=== PATIENT | female | born 1960 | race Caucasian/White ===

== ENCOUNTER 2019-12-05 18:13 | Inpatient (IN) | payer MEDICARE, MEDICAID ==
[~2019-12-05] VITALS: Ht 170.2 cm; Wt 83.5 kg
[2019-12-05] MEDS ORDERED: ALBUTEROL SULFATE 2.5 MG/0.5 ML INH NEB SOLN INH ONE (18:30)
[2019-12-05] MEDS ORDERED: IPRATROPIUM 0.5MG/ALBUTEROL 2.5MG INH SOL UD 3ML (DUONEB)(J7620) NEB ONE (18:30)
[2019-12-05] MEDS ORDERED: methylPREDNISolone INJ 125 MG/2 ML VIAL (J2930) IV ONE (18:30)
[2019-12-05 18:39] LABS: HEMATOCRIT 44.1 % (36.0-47.0); HEMOGLOBIN 12.1 g/dl (12.0-15.5); MEAN CORPUSCULAR HEMOGLOBIN 24.1 pg (27.0-33.0); MEAN CORPUSCULAR HGB CONC 27.4 g/dl (32.0-36.5); MEAN CORPUSCULAR VOLUME 87.7 fl (80.0-96.0); PLATELET COUNT, AUTOMATED 556 10^3/uL (150-450); RED BLOOD COUNT 5.03 10^6/uL (4.00-5.40)
[2019-12-05 18:40] LABS: WHITE BLOOD COUNT 24.3 10^3/uL (4.0-10.0)
[2019-12-05 18:52] LABS: INR 1.04; PROTHROMBIN TIME 13.3 SECONDS (11.8-14.0)
[2019-12-05 18:59] LABS: ANISOCYTOSIS 1+; ATYPICAL LYMPH 10 % (0-5); LYMPHOCYTES 17 % (16-44); MONOCYTES 5 % (0-5); NEUTROPHILS 68 % (28-66); PLATELET ESTIMATE INCREASED (NORMAL); POLYCHROMASIA 1+
[2019-12-05 19:00] LABS: HYPOCHROMASIA 1+
[2019-12-05 19:01] LABS: PLATELET CLUMPS SMALL AMT
[2019-12-05 19:02] LABS: ALBUMIN 3.8 GM/DL (3.2-5.2); ALT/SGPT 33 U/L (12-78); BILIRUBIN,DIRECT 0.1 MG/DL (0.0-0.2); BILIRUBIN,TOTAL 0.4 MG/DL (0.2-1.0); NT-PRO BNP 228 PG/ML (<125); THYROXINE (T4) 8.2 UG/DL (4.5-12.0); TOTAL PROTEIN 7.5 GM/DL (6.4-8.2)
[2019-12-05 19:20] LABS: CK-MB VALUE MASS 1.5 NG/ML (<3.6); CPK CREATINE PHOSPHOKINASE 55 U/L (26-192); MB/CK RELATIVE INDEX 2.73 (< OR =4); TROPONIN I < 0.02 NG/ML (< 0.10)
[2019-12-05] MEDS ORDERED: cefTRIAXone SOD 1 GM in D5W MINI-BAG PLUS 50 ML IV ONE (19:45)
[2019-12-05] MEDS ORDERED: PROC5TA PO (20:06)
[2019-12-05] MEDS ORDERED: ALPR0.5T3 PO (20:06)
[2019-12-05] MEDS ORDERED: SERT-138 PO (20:06)
[2019-12-05] MEDS ORDERED: LEVA12INH INH (20:06)
[2019-12-05] MEDS ORDERED: PRED10TA2 PO (20:06)
[2019-12-05] MEDS ORDERED: VENTAER INH (20:06)
[2019-12-05] MEDS ORDERED: BISO5TAB14 PO (20:06)
[2019-12-05] MEDS ORDERED: HYDR-3713 PO (20:06)
[2019-12-05] MEDS ORDERED: MOBI4TAB PO (20:06)
[2019-12-05] MEDS ORDERED: SPIR1CAP INH (20:06)
[2019-12-05] MEDS ORDERED: ATOR80TA59 PO (20:34)
[2019-12-05] MEDS ORDERED: JANU100T PO (20:34)
[2019-12-05] MEDS ORDERED: VITA50005 PO (20:34)
[2019-12-05] MEDS ORDERED: FLUO1TAB3 PO (20:34)
[2019-12-05] MEDS ORDERED: LEVO25TA5 PO (20:34)
[2019-12-05] MEDS ORDERED: POTA8CAP10 PO (20:34)
[2019-12-05] MEDS ORDERED: GABA800T4 PO (20:34)
[2019-12-05] MEDS ORDERED: PANT-23 PO (20:34)
[2019-12-05] MEDS ORDERED: IPRA0.00 IN (20:34)
[2019-12-05] MEDS ORDERED: FURO40TA2 PO (20:34)
[2019-12-05] MEDS: MELOXICAM (MOBIC) 7.5 MG TAB PO SCH (21:00)
[2019-12-05] MEDS ORDERED: LEVALBUTEROL 1.25 MG/0.5 ML CONCENTRATE NEB INH PRN (21:15)
[2019-12-05] MEDS ORDERED: GLUCOSE 4 GM CHEW TABLET PO PRN (22:00)
[2019-12-05] MEDS ORDERED: DEXTROSE 50% 50 ML SYRINGE IV PRN (22:00)
[2019-12-05] MEDS ORDERED: GLUCAGON FOR INJ 1 MG VIAL (J1610) SC PRN (22:00)
--- NOTE | 2019-12-05 22:30 | HPEPDOC ---
General Date of Admission Dec 05, 2019 at 21:13 Date of Service: Dec 05, 2019 Attending Physician: HERIBERTO FORTE MD Chief Complaint The patient is a 59-year-old female admitted with a reason for visit of Acute Respiratory Failure With Hypoxia And Hyperca. Source: Patient Exam Limitations: No limitations Timing/Duration: 24 hours Severity: Severe Associated Symptoms: Malaise, Shortness of breath History of Present Illness 59-year-old W with COPD on 2L O2 and chronic steroids, SATHISH and possible OHS? on BiPAP 16/6 PRN and QHS, NIDDM2, CAD (Hx of NE), HTN, hyperlipidemia, hypothyroidism, bipolar disorder, GERD, active smoker who quit 1 week ago, rece ntly admitted for COPD exacerbation who returns to the ED via EMS with complaints of worsening shortness of breath, without any complaints of tiff chest pain, palpitations, fever, chills or increased sputum production. In the ED intial vitals were BP 155/80, 91% on BiPAP 20/10 @ 30% by the time I saw her for increased somnolence that had improved, HR 102, RR29. Initial ABG showed 7.26/109/209 that improved to 7.35/86.6/68 with improvement of her somnolence and answered all questions appropriately on my evaluation. She was given duonebx1, albuterol x 1 and empiric ceftriaxone. Initial work up was notable for negative troponin, unremarkable BNP 228, normal TSH, CXR with chronic emphysematous changes without tiff opacities or effusions, WBC 24.3, Hgb 12.1, Hgb 44.1, platelets 556, na 137, K 4.3, Bicarb 45, Cr 0.7, normal LFTs. She is now being admitted to the ICU for acute on chronic hypercarbic hypoxemic respiratory failure likely 2/2 COPD exacerbation for BiPAP and IV steroids. Home Medications Scheduled Alprazolam (Alprazolam) 0.5 Mg Tablet, 0.5 MG PO BID, (Reported) Atorvastatin Calcium (Atorvastatin Calcium) 80 Mg Tablet, 80 MG PO DAILY, (Reported) Bisoprolol Fumarate (Bisoprolol Fumarate) 5 Mg Tablet, 2.5 MG PO DAILY, (Reported) Ergocalciferol (Vitamin D2) (Vitamin D2) 50,000 Units Cap, 50,000 UNITS PO 1XWK, (Reported) TAKES ON FRIDAY Fluoxetine HCl (Fluoxetine HCl) 20 Mg Tablet, 20 MG PO DAILY, (Reported) Furosemide (Furosemide) 40 Mg Tablet, 40 MG PO BID, (Reported) Gabapentin (Gabapentin) 800 Mg Tablet, 800 MG PO TID, (Reported) Levothyroxine Sodium (Levothyroxine Sodium) 25 Mcg Tablet, 25 MCG PO DAILY, (Reported) Meloxicam (Mobic) 7.5 Mg Tablet, 7.5 MG PO BID, (Reported) WITH FOOD Pantoprazole Sodium (Pantoprazole Sodium) 40 Mg Tablet.dr, 40 MG PO DAILY, (Reported) Potassium Chloride (Potassium Chloride) 8 Meq Capsule.er, 16 MEQ PO DAILY, (Reported) Prednisone (Prednisone) 10 Mg Tablet, 5 MG PO DAILY, (Reported) Prochlorperazine (Prochlorperazine Maleate) 5 Mg Tablet, 5 MG PO DAILY, (Reported) Sertraline HCl (Sertraline HCl) 100 Mg Tablet, 100 MG PO DAILY, (Reported) Sitagliptin Phosphate (Januvia) 100 Mg Tablet, 100 MG PO DAILY, (Reported) Tiotropium [place] (Spiriva) 18 Mcg Cap.w.dev, 1 INHALATION INH DAILY, (Reported) Scheduled PRN Albuterol Sulfate (Ventolin Hfa) 18 Gm Hfa.aer.ad, 2 PUFF INH Q4-6H PRN for wheezing, (Reported) Hydrocodone/Acetaminophen (Hydrocodone-Acetamin 5-325 mg) 1 Each Tablet, 1 TAB PO TID PRN for pain, (Reported) Ipratropium/Albuterol Sulfate (Iprat-Albut 0.5-3(2.5) mg/3 ml) 3 Ml Ampul.neb, 1 INHALATION IN QID PRN for SHORTNESS OF BREATH, (Reported) Levalbuterol Hydrochloride (Xopenex Concentrate) 1.25 Mg/0.5 Ml Vial.neb, 1.25 MG INH Q4H PRN for WHEEZING, (Reported) Allergies Coded Allergies: Cat Dander (Verified Allergy, Unknown, 12/05/19) Dust (Verified Allergy, Unknown, 12/05/19) Past Medical History Medical History COPD on home O2 and chronic steroids, SATHISH on PRN BiPAP as well as QHS, NIDDM2, CAD (Hx of NE), HTN, DLP, Hypothyroidism, Bipolar disorder, GERD Family History Significant Family History: No pertinent family hx Social History * Smoker: current smoker Alcohol: Denies Drugs: denies Recent Travel/Sick Contacts: Denies: Recent travel, Recent sick contacts Psychosocial History: Depression Lives alone, smoker trying to quit A-FIB/CHADSVASC A-FIB History Current/History of A-Fib/PAF?: No Current PO Anticoag Therapy: No Age/Risk Factor Scoring CHADSVASC: CHADSVASC Response (Comments) Value Age Risk Factor Age < 65 years old 0 Gender Risk Factor Female 1 Hx of CHF Yes 1 Hx of HTN Yes 1 Hx of Stroke/TIA/or VTE No 0 Hx of Diabetes Yes 1 Hx of Vascular Disease Yes 1 Total 5 Treatment Treatment ordered: NONE Reason Anticoagulant not given: Not indicated/[id number] Review of Systems Constitutional: Reports: Fatigue, Lethargy; Denies: Chills, Fever, Night Sweats Eyes: Denies: Pain, Vision change ENT: Denies: Head Aches, Ear Pain, Dysphagia Skin: Denies: Rash, Lesions, Breakdown Pulmonary: Reports: Dyspnea, Cough; Denies: Pleuritic Chest Pain Cardiovascular: Denies: Chest Pain, Palpitations, Orthopnea, Paroxysmal Noc. Dyspnea, Lt Headedness Gastrointestinal: Denies: Nausea, Vomiting, Abdominal Pain, Diarrhea Genitourinary: Denies: Dysuria, Frequency, Incontinence, Retention Hematologic: Denies: Bruising, Bleeding Excessively Endocrine: Denies: Polydipsia, Polyphagia, Polyuria, Heat Intolerance, Cold Intolerance, Other Endocrine Sx Musculoskeletal: Denies: Neck Pain, Back Pain, Joint Pain, Muscle Pain, Spasms Neurological: Denies: Weakness, Numbness, Change in speech, Confusion Psych: Reports: Mood Normal; Denies: Depression, Memory Issues Physical Examination General Exam: Positive: Alert, No Acute Distress Eye Exam: Positive: PERRLA, Conjunctiva & lids normal, EOMI; Negative: Sclera icteric ENT Exam: Positive: Atraumatic, Mucous membr. moist/pink, Pharynx Normal Neck Exam: Positive: Supple; Negative: JVD, thyromegaly Chest Exam: Positive: Clear to auscultation, Normal air movement, Rhonchi; Negative: Rales, Wheezing Heart Exam: Positive: Rate Normal, Regular Rhythm, Normal S1, Normal S2; Negative: Murmurs, Rubs Telemetry: Positive: No significant arrhythmia, Tachycardia Abdomen Exam: Positive: Normal bowel sounds, Soft; Negative: Tenderness, Hepatospenomegaly Extremity Exam: Positive: Normal pulses; Negative: Clubbing, Cyanosis, Edema Skin Exam: Positive: Nl turgor and temperature; Negative: Breakdown, Lesion Neuro Exam: Positive: Normal Gait, Normal Speech, Cranial Nerves 3-12 NL, Reflexes 2+ Psych Exam: Positive: Mental status NL, Mood NL, Oriented x 3 Vital Signs Vital Signs Date Time Temp Pulse Resp B/P (MAP) Pulse Ox O2 Delivery O2 Flow Rate FiO2 12/05/19 19:51 91 BIPAP/CPAP 30 12/05/19 18:37 99.2 102 47 155/80 (105) Laboratory Data Labs 24H Laboratory Tests 2 12/05/19 18:19: Lymphocytes # (Auto) , Nucleated Red Blood Cells % (auto) 0.0, Neutrophils 68H, Lymphocytes (Manual) 17, Monocytes (Manual) 5, Atypical Lymphocytes 10H, Polychromasia 1+, Hypochromasia 1+, Basophilic Stippling 1+, Anisocytosis 1+, Pl atelet Estimate INCREASED, Clumped Platelets SMALL AMT, Prothrombin Time 13.3, Prothromb Time International Ratio 1.04, Lactic Acid Level 1.0, Total Bilirubin 0.4, Direct Bilirubin 0.1, Aspartate Amino Transf (AST/SGOT) 13, Alanine Aminotransferase (ALT/SGPT) 33, Alkaline Phosphatase 126H, Total Creatine Kinase 55, Creatine Kinase MB 1.5, Creatine Kinase MB Relative Index 2.73, Troponin I < 0.02, LN-Mwp-U-Type Natriuretic Peptide 228H, Total Protein 7.5, Albumin 3.8, Albumin/Globulin Ratio 1.03, Thyroid Stimulating Hormone (TSH) 2.830, Thyroxine (T4) 8.2 12/05/19 18:21: Bedside Glucose (Misc Panel) 218H 12/05/19 18:25: POC Glucose (Misc Panel) 210H, POC Sodium (Misc Panel) 137, POC Potassium (Misc Panel) 4.3, POC Chloride (Misc Panel) 87L, POC Total CO2 (Misc Panel) 45.0H, POC Blood Urea Nitrogen (Misc Panel 21, POC Ionized Calcium (Misc Panel) 4.6, POC Creatinine (Misc Panel) 0.7, POC Hematocrit (Misc Panel) 44.0 12/05/19 18:32: POC Total CO2 (Misc Panel) > 50.0H, POC pH (Misc Panel) 7.267L, POC Base Excess (Misc Panel) 23.0H, POC Saturated Percent O2 (Misc) 100H, POC pO2 (Misc Panel) 249.0H, POC pCO2 (Misc Panel) 109.5*H, POC HCO3 (Misc Panel) 49.9H 12/05/19 19:52: POC pH (Misc Panel) 7.357, POC Base Excess (Misc Panel) 23.0H, POC Saturated Percent O2 (Misc) 91L, POC pO2 (Misc Panel) 68.0L, POC pCO2 (Misc Panel) 86.6*H, POC HCO3 (Misc Panel) 48.5H, POC Total CO2 (Misc Panel) > 50.0H CBC/BMP Laboratory Tests 12/05/19 18:19 Microbiology Microbiology 12/05/19 Blood Culture, Received Pending 12/05/19 Respiratory Virus Panel (PCR) (GERI) - Final, Complete 12/05/19 Blood Culture, Received Pending Assessment/Plan Assessment 59-year-old W with COPD on 2L O2 and chronic steroids, SATHISH and possible OHS? on BiPAP PRN and QHS, NIDDM2, CAD (Hx of NE), HTN, hyperlipidemia, hypothyroidism, bipolar disorder, GERD, active smoker, recently admitted for COPD exacerbation who returns to the ED via EMS with complaints of worsening shortness of breath, without chest pain, palpitations, fever, chills or increased sputum production and work up with leukocytosis without evidence of tiff pneumonia being admitted for COPD exacerbation in the setting of active smoking. Plan: Shortness of breath / acute on chronic hypercapnic hypoxemic respiratory failure: 2/2 COPD exacerbation - Likely 2/2 acute exacerbation of COPD , unlikely to be bacterial pneumonia with CXR without opacities, no history of increased sputum production, no fever, chills, and leukocytosis that appears somewhat chronic 2/2 steroids - Physical examination does not reveal any significant rales or wheezing - continue BiPAP at 20/10, consulted pulm with Dr. Mendez aware of admission and will see in the AM - ABG improving, another one pending with follow up AM ABG ordered - Elevation of WBC appears chronic, without lactic acidosis - Will check respiratory panel - Will send sputum cultures , s/p empiric ceftriaxone in the ED, no continuation of abx at this time, to treat for COPD exacerbation - Solumedrol 80Q8 IV for now - Xenopex/ipratropium QID, and xenopex q4h PRN - NPO while on BiPAP - Held her benzo while somnolent, and reduced her gabapentin while somnolent, made restore these meds once mentation improves SATHISH on home BiPAP QHS - continue continuous BIPAP at 20/10 for now NIDDM2 - Hold PO meds and start ISS AC/HS only because I expect her to be off the continuous BiPAP by AM otherwise will need Q6H -FSBG Q6H -hypoglycemia protocol CAD (Hx of NE) - c/w ASA and Atorvastatin starting tomorrow AM as she will probably be taking PO by then HTN - c/w Bisoprolol and furosemide starting tomorrow AM as she will probably be taking PO by then Hyperlipidemia - c/w Atorvastatin starting tomorrow AM as she will probably be taking PO by then Hypothyroidism - c/w Levothyroxine starting tomorrow AM as she will probably be taking PO by then Bipolar disorder / Anxiety - Will hold Alprazolam while somnolent - c/w Fluoxetine Neuropathy / Chronic pain - c/w Gabapentin at 200 BID instead of 800 BID while somnolent, may restore once mentation improves - Will hold [place] as well GERD - c/w Protonix, currently switched to IV while on continuous BiPAP DVT prophylaxis: Lovenox 40 Diet: NPO on continous BiPAP Dispo: ICU Plan / VTE VTE Prophylaxis Ordered?: Yes HERIBERTO FORTE MD Dec 05, 2019 22:30
[2019-12-05] MEDS: GABAPENTIN 100 MG CAP PO SCH (23:22)
[2019-12-05] MEDS: HumaLOG INSULIN (NovoLOG) PER UNIT SC SCH (23:29)
[2019-12-06] VITALS (15 sets, daily range): BP systolic 100–158; BP diastolic 53–86; O2SAT 93–95
[2019-12-06] MEDS ORDERED: methylPREDNISolone INJ 125 MG/2 ML VIAL (J2930) IV SCH
[2019-12-06] MEDS: LEVALBUTEROL 1.25 MG/0.5 ML CONCENTRATE NEB NEB SCH ×4 (03:52→20:03)
[2019-12-06] MEDS: IPRATROPIUM 0.02% SOLN 0.5MG/2.5 ML NEB NEB SCH ×4 (03:52→20:03)
[2019-12-06 05:45] LABS: ABG BASE EXCESS 11.3 (-2.0-2.0); ABG HCO3 38.3 MEQ/L (22.0-26.0); ABG STANDARD HCO3 35.2 MEQ/L (22.0-26.0); ABG TOTAL CO2 40.1 MEQ/L (23.0-31.0)
[2019-12-06 05:46] LABS: ABG O2 SATURATION 96.1 % (95.0-99.0)
[2019-12-06] MEDS: LEVOTHYROXINE 25MCG TABLET (0.025MG) PO SCH (06:00)
[2019-12-06] MEDS: HumaLOG INSULIN (NovoLOG) PER UNIT SC SCH ×4 (06:03→20:25)
--- NOTE | 2019-12-06 08:05 | REP ---
AP PORTABLE CHEST: 12/05/2019. CLINICAL HISTORY: Dyspnea and cough. COMPARISON: Chest x-ray 08/02/2016. FINDINGS: Lungs hyperinflated with flattened diaphragms. There are some minor basilar fibrotic change and evidence for COPD. Pulmonary arteries are mildly prominent bilaterally, unchanged. Heart is not enlarged. The aorta is mildly tortuous but it follows a gentle curvature of the thoracic spine. Airway intact. No acute bony finding. Impression: 1. Hyperinflation with some pulmonary artery prominence suggesting COPD. No infiltrate, effusion, cardiomegaly or edema. Electronically Signed by Juve Soto MD 12/06/2019 09:35 A
[2019-12-06] MEDS: PANTOPRAZOLE 40MG INJ (PROTONIX) (C9113) IV SCH (09:00)
[2019-12-06] MEDS: SERTRALINE 100 MG TAB PO SCH (09:00)
--- NOTE | 2019-12-06 09:53 | IPNPDOC ---
Subjective Date Seen The patient was seen on 12/06/19. Subjective Chief Complaint/HPI Patient is on a BiPAP in no apparent distress, tolerating BiPAP very well General: Reports: ROS Unobtainable, Other Symptoms (unable to obtained review of system as patient is currently on BiPAP) Objective Physical Examination Neck Exam: Positive: Supple Chest Exam: Positive: Clear to auscultation, Diminished Heart Exam: Positive: Rate Normal, Regular Rhythm, Normal S1, Normal S2; Negative: Murmurs, Rubs Abdomen Exam: Positive: Normal bowel sounds, Soft Extremity Exam: Positive: Normal pulses Assessment /Plan Problems (1) Acute respiratory failure with hypoxia and hypercapnia Status: Acute Problem Text: Recurrent admissions to hospital in ICU with acute on chronic hypercarbic and hypoxic respiratory failure Patient's is active smoker and also noncompliant with her BiPAP at home Continue BiPAP support. The patient seen by pulmonary consultation today Once cleared from pulmonary embolus start her by mouth meds as well as diet Fingerstick at present is every 6 hours with coverage Discussed with social work job titles regarding possible placement of patient at high level of care DVT prophylaxis with heparin Continue all home meds (2) Hyperlipidemia Status: Chronic Problem Text: Continue present meds (3) Hypothyroid Status: Chronic Problem Text: Continue present meds (4) HTN (hypertension) Status: Chronic Problem Text: Continue present meds (5) CAD (coronary artery disease) Status: Chronic Problem Text: Continue present meds (6) Diabetes mellitus Status: Chronic Problem Text: Age fingerstick to every before meals and at bedtime once taken oral meals with insulin coverage Continue all home meds Plan/VTE VTE Prophylaxis Ordered?: Yes VS, I&O, 24H, [place] Vital Signs/I&O Vital Signs Date Time Temp Pulse Resp B/P (MAP) Pulse Ox O2 Delivery O2 Flow Rate FiO2 12/06/19 07:50 30 12/06/19 07:50 95 BIPAP/CPAP 12/06/19 05:00 98.0 77 18 111/68 (82) 12/06/19 04:00 30.0 I&O- Last 24 Hours up to 6 AM 12/06/19 06:00 Intake Total 150 ml Output Total 750 ml Balance -600 ml Laboratory Data 24H LABS Laboratory Tests 2 12/05/19 18:19: Lymphocytes # (Auto) , Nucleated Red Blood Cells % (auto) 0.0, Neutrophils 68H, Lymphocytes (Manual) 17, Monocytes (Manual) 5, Atypical Lymphocytes 10H, Polychromasia 1+, Hypochromasia 1+, Basophilic Stippling 1+, Anisocytosis 1+, Platelet Estimate INCREASED, Clumped Platelets SMALL AMT, Prothrombin Time 13.3, Prothromb Time International Ratio 1.04, Lactic Acid Level 1.0, Total Bilirubin 0.4, Direct Bilirubin 0.1, Aspartate Amino Transf (AST/SGOT) 13, Alanine Aminotransferase (ALT/SGPT) 33, Alkaline Phosphatase 126H, Total Creatine Kinase 55, Creatine Kinase MB 1.5, Creatine Kinase MB Relative Index 2.73, Troponin I < 0.02, TT-Ppg-P-Type Natriuretic Peptide 228H, Total Protein 7.5, Albumin 3.8, Albumin/Globulin Ratio 1.03, Thyroid Stimulating Hormone (TSH) 2.830, Thyroxine (T4) 8.2 12/05/19 18:21: Bedside Glucose (Misc Panel) 218H 12/05/19 18:25: POC Glucose (Misc Panel) 210H, POC Sodium (Misc Panel) 137, POC Potassium (Misc Panel) 4.3, POC Chloride (Misc Panel) 87L, POC Total CO2 (Misc Panel) 45.0H, POC Blood Urea Nitrogen (Misc Panel 21, POC Ionized Calcium (Misc Panel) 4.6, POC Creatinine (Misc Panel) 0.7, POC Hematocrit (Misc Panel) 44.0 12/05/19 18:32: POC Total CO2 (Misc Panel) > 50.0H, POC pH (Misc Panel) 7.267L, POC Base Excess (Misc Panel) 23.0H, POC Saturated Percent O2 (Misc) 100H, POC pO2 (Misc Panel) 249.0H, POC pCO2 (Misc Panel) 109.5*H, POC HCO3 (Misc Panel) 49.9H 12/05/19 19:52: POC pH (Misc Panel) 7.357, POC Base Excess (Misc Panel) 23.0H, POC Saturated Percent O2 (Misc) 91L, POC pO2 (Misc Panel) 68.0L, POC pCO2 (Misc Panel) 86.6*H, POC HCO3 (Misc Panel) 48.5H, POC Total CO2 (Misc Panel) > 50.0H 12/05/19 23:25: Bedside Glucose (Misc Panel) 263H 12/06/19 05:26: Blood Gas Bicarbonate Standard 35.2H, Arterial Blood pH 7.430, Arterial Blood Partial Pressure CO2 59.0H, Arterial Blood Partial Pressure O2 99.0, Arterial Blood Total CO2 40.1H, Arterial Blood HCO3 38.3H, Arterial Blood Base Excess 11.3H, Arterial Blood Oxygen Saturation 96.1 12/06/19 05:56: Bedside Glucose (Misc Panel) 282H 12/06/19 09:43: CBC/BMP Laboratory Tests 12/05/19 18:19 Microbiology Microbiology 12/05/19 Blood Culture, Received Pending 12/05/19 Respiratory Virus Panel (PCR) (GERI) - Final, Complete 12/05/19 Blood Culture, Received Pending RUBEN PANDEY MD Dec 06, 2019 09:53
[2019-12-06 09:54] LABS: HEMATOCRIT 36.6 % (36.0-47.0); HEMOGLOBIN 10.4 g/dl (12.0-15.5); MEAN CORPUSCULAR HGB CONC 28.4 g/dl (32.0-36.5); MEAN CORPUSCULAR VOLUME 84.3 fl (80.0-96.0); RED BLOOD COUNT 4.34 10^6/uL (4.00-5.40); WHITE BLOOD COUNT 14.9 10^3/uL (4.0-10.0)
[2019-12-06 10:13] LABS: PLATELET COUNT, AUTOMATED 358 10^3/uL (150-450)
[2019-12-06 10:14] LABS: BLOOD UREA NITROGEN 15 MG/DL (7-18); CALCIUM LEVEL 8.8 MG/DL (8.8-10.2); CARBON DIOXIDE LEVEL 43 MEQ/L (21-32); CHLORIDE LEVEL 92 MEQ/L (98-107); CREATININE FOR GFR 0.39 MG/DL (0.55-1.30); GLOMERULAR FILTRATION RATE > 60.0 (>45); GLUCOSE, FASTING 210 MG/DL (70-100); MAGNESIUM LEVEL 1.9 MG/DL (1.8-2.4); POTASSIUM SERUM 3.8 MEQ/L (3.5-5.1); SODIUM LEVEL 138 MEQ/L (136-145)
[2019-12-06] MEDS: FUROSEMIDE 40 MG TAB PO SCH ×2 (10:34→18:20)
[2019-12-06] MEDS: predniSONE 20 MG TAB PO SCH (10:34)
[2019-12-06] MEDS: POTASSIUM CHLORIDE 10 MEQ SR TABLET PO SCH (10:34)
[2019-12-06] MEDS: BISOPROLOL FUM 2.5 MG PER 1/2TAB PO SCH (10:35)
[2019-12-06] MEDS: GABAPENTIN 100 MG CAP PO SCH ×3 (10:35→20:25)
[2019-12-06] MEDS: ATORVASTATIN 20 MG TAB PO SCH (10:35)
[2019-12-06] MEDS: ENOXAPARIN 40 MG/0.4 ML SYRINGE (J1650) SC SCH (10:35)
[2019-12-06] MEDS: FLUoxetine 20 MG CAP PO SCH (10:35)
[2019-12-06] MEDS: MELOXICAM (MOBIC) 7.5 MG TAB PO SCH ×2 (10:35→20:26)
[2019-12-06] MEDS: PROCHLORPERAZINE 5 MG TAB (S0183) PO SCH (10:35)
--- NOTE | 2019-12-06 18:39 | ECGEPIP ---
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
[2019-12-07] VITALS (7 sets, daily range): BP systolic 116–146; BP diastolic 64–79
[2019-12-07] MEDS: IPRATROPIUM 0.02% SOLN 0.5MG/2.5 ML NEB NEB SCH ×4 (02:45→20:00)
[2019-12-07] MEDS: LEVALBUTEROL 1.25 MG/0.5 ML CONCENTRATE NEB NEB SCH ×4 (02:45→20:00)
[2019-12-07] MEDS ORDERED: IBUPROFEN 600 MG TAB PO ONE (05:00)
[2019-12-07] MEDS: LEVOTHYROXINE 25MCG TABLET (0.025MG) PO SCH (05:22)
[2019-12-07 05:33] LABS: BASO % 0.1 % (0.0-1.0); EOS # 0.1 10^3/uL (0.0-0.5); EOS % 0.5 % (0.0-3.0); HEMATOCRIT 33.2 % (36.0-47.0); HEMOGLOBIN 9.6 g/dl (12.0-15.5); LYMPH # 3.1 10^3/uL (1.5-5.0); LYMPH % 22.2 % (24.0-44.0); MEAN CORPUSCULAR HEMOGLOBIN 24.2 pg (27.0-33.0); MEAN CORPUSCULAR HGB CONC 28.9 g/dl (32.0-36.5); MEAN CORPUSCULAR VOLUME 83.6 fl (80.0-96.0); MONO # 1.3 10^3/uL (0.0-0.8); MONO % 9.5 % (0.0-5.0); NEUTROPHILS # 9.3 10^3/uL (1.5-8.5); NEUTROPHILS % 66.8 % (36.0-66.0); PLATELET COUNT, AUTOMATED 369 10^3/uL (150-450); RED BLOOD COUNT 3.97 10^6/uL (4.00-5.40)
[2019-12-07 06:20] LABS: ALBUMIN 2.8 GM/DL (3.2-5.2); ALT/SGPT 19 U/L (12-78); BILIRUBIN,TOTAL 0.3 MG/DL (0.2-1.0); BLOOD UREA NITROGEN 21 MG/DL (7-18); CALCIUM LEVEL 8.3 MG/DL (8.8-10.2); CARBON DIOXIDE LEVEL 39 MEQ/L (21-32); CHLORIDE LEVEL 93 MEQ/L (98-107); CREATININE FOR GFR 0.62 MG/DL (0.55-1.30); GLOMERULAR FILTRATION RATE > 60.0 (>45); GLUCOSE, FASTING 217 MG/DL (70-100); POTASSIUM SERUM 3.2 MEQ/L (3.5-5.1); SODIUM LEVEL 137 MEQ/L (136-145); TOTAL PROTEIN 5.9 GM/DL (6.4-8.2)
--- NOTE | 2019-12-07 07:12 | IPN ---
DATE: 12/05/2019 TIME: 10:30 p.m. I was called to the emergency department to evaluate this 59-year-old female with hypoxic hypercarbic respiratory failure. This is her 20th hospitalization in the last year for this issue. She was discharged from the hospital yesterday. She presented from home via emergency medical services (EMS) with increasing dyspnea. She was found to have abnormal blood gases and was placed on noninvasive positive pressure ventilation. Apparently, the patient resumed smoking shortly after she returned home and the environment was thick with smoke when EMS arrived. Her temperature is 99.2, pulse rate 102, respirations 26, blood pressure 135/87. She is responsive and attempts to speak through the mask. HEENT: Oral and nasal mucosa are dry. Her pupils are small. Jugular veins are not distended. The carotid upstroke is brisk. No stridor. Heart sounds are regular without appreciable murmur. Breath sounds diminished globally, expiratory phase is markedly prolonged. There is expiratory wheeze. Chest is symmetric. There is no accessory muscle use on noninvasive ventilation. Abdomen is soft with ecchymoses. Extremities also showing ecchymoses and diminished pulses peripherally. Diagnostic studies were reviewed. Her chest x-ray shows hyperinflation and bibasilar atelectasis. White cell count is 24.3, hemoglobin 12.1, hematocrit 44.1, platelet count 556,000. Sodium is 137, potassium 4.3, chloride 87, CO2 45, BUN 21, creatinine 0.7, glucose 210. Arterial blood gases on admission showed a pH of 7.26, pCO2 109.5, pO2 250. After noninvasive ventilation, pCO2 was pH 7.35, pCO2 91 and pO2 68. The primary problem requiring critical attention is acute hypoxic hypercarbic respiratory failure. Noninvasive ventilation is assisting the patient. Will check the orders, continue with noninvasive positive pressure ventilation and recheck arterial blood gases. The patient has end-stage obstructive airways disease. Nebulized beta agonists and anticholinergics have been initiated. When she is able to be off noninvasive ventilation, longer acting agents would be appropriate. IV steroids will also be started. Tobacco dependency. The patient continues to smoke whenever she leaves the hospital. Her condition is critical. Prognosis is poor. I have discussed the case with the emergency room staff and the intensive care unit (ICU) team. We will facilitate transfer now to the intensive care unit for continued care. When the patient responds to treatment, other arrangements will need to be made as discharge home is clearly unsafe. 82 minutes was spent in the provision of bedside critical care and coordination.
[2019-12-07] MEDS ORDERED: POTASSIUM CHLORIDE 10 MEQ SR TABLET PO ONE (08:00)
[2019-12-07] MEDS: ATORVASTATIN 20 MG TAB PO SCH (08:52)
[2019-12-07] MEDS: SERTRALINE 100 MG TAB PO SCH (08:52)
[2019-12-07] MEDS: POTASSIUM CHLORIDE 10 MEQ SR TABLET PO SCH (08:53)
[2019-12-07] MEDS: ENOXAPARIN 40 MG/0.4 ML SYRINGE (J1650) SC SCH (08:53)
[2019-12-07] MEDS: GABAPENTIN 100 MG CAP PO SCH ×3 (08:54→20:50)
[2019-12-07] MEDS: BISOPROLOL FUM 2.5 MG PER 1/2TAB PO SCH (08:54)
[2019-12-07] MEDS: FLUoxetine 20 MG CAP PO SCH (08:54)
[2019-12-07] MEDS: PROCHLORPERAZINE 5 MG TAB (S0183) PO SCH (08:54)
[2019-12-07] MEDS: FUROSEMIDE 40 MG TAB PO SCH ×2 (08:54→17:34)
[2019-12-07] MEDS: predniSONE 20 MG TAB PO SCH (08:54)
[2019-12-07] MEDS: MELOXICAM (MOBIC) 7.5 MG TAB PO SCH ×2 (08:55→20:50)
[2019-12-07] MEDS: HumaLOG INSULIN (NovoLOG) PER UNIT SC SCH ×4 (08:55→20:50)
[2019-12-07] MEDS: PANTOPRAZOLE 40MG INJ (PROTONIX) (C9113) IV SCH (08:55)
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
--- NOTE | 2019-12-07 11:02 | IPNPDOC ---
Subjective Date Seen The patient was seen on 12/07/19. Subjective Chief Complaint/HPI Patient is comfortable in no distress. No shortness of breath General: Denies: ROS Unobtainable, Chills, Night Sweats, Fatigue, Malaise, Normal Appetite, Other Symptoms Constitutional: Denies: Chills, Fever, Malaise, Night Sweats, Weakness, Fatigue, Weight Loss, Lethargy, Other Pulmonary: Denies: Dyspnea, Cough, Pleuritic Chest Pain, Other Symptoms Cardiovascular: Denies: Chest Pain, Palpitations, Orthopnea, Paroxysmal Noc. Dyspnea, Edema, Lt Headedness, Other Symptoms Gastrointestinal: Denies: Nausea, Vomiting, Abdominal Pain, Diarrhea, Constipation, Melena, Hematochezia, Other Symptoms Hematologic: Denies: Bruising, Bleeding Excessively, Petecchia, Purpura, Enlarged Lymph Nodes, Other Hematologic Endocrine: Denies: Polydipsia, Polyphagia, Polyuria, Heat Intolerance, Cold Intolerance, Other Endocrine Sx Musculoskeletal: Denies: Neck Pain, Back Pain, Shoulder Pain, Arm Pain, Hand Pain, Leg Pain, Foot Pain, Joint Pain, Muscle Pain, Spasms, Other Symptoms Neurological: Denies: Weakness, Numbness, Incoordination, Change in speech, Con fusion, Seizures, Other Symptoms Psych: Denies: Mood Normal, Anxiety, Depression, Memory Issues, Thoughts of Self Harm, Anger, Thoughts of Harming Other, Other Psych Objective Physical Examination Neck Exam: Positive: Supple Chest Exam: Positive: Clear to auscultation, Diminished Heart Exam: Positive: Rate Normal, Regular Rhythm, Normal S1, Normal S2; Negative: Murmurs, Rubs Abdomen Exam: Positive: Normal bowel sounds, Soft Extremity Exam: Positive: Normal pulses Assessment /Plan Problems (1) Acute respiratory failure with hypoxia and hypercapnia Status: Acute Problem Text: Recurrent admissions to hospital in ICU with acute on chronic hypercarbic and hypoxic respiratory failure Patient's is active smoker and also noncompliant with her BiPAP at home Continue BiPAP during sleep and during naps Patient has been transferred to medical floor The patient finally has agreed to be placed in assisted living facility. Discussed with caseworker and social work regarding placement, placement search will be restarted. Continue present meds (2) Hyperlipidemia Status: Chronic Problem Text: Continue present meds (3) Hypothyroid Status: Chronic Problem Text: Continue present meds (4) HTN (hypertension) Status: Chronic Problem Text: Continue present meds (5) CAD (coronary artery disease) Status: Chronic Problem Text: Continue present meds (6) Diabetes mellitus Status: Chronic Problem Text: Age fingerstick to every before meals and at bedtime once taken oral meals with insulin coverage Continue all home meds Plan/VTE VTE Prophylaxis Ordered?: Yes VS, I&O, 24H, Fishbone Vital Signs/I&O Vital Signs Date Time Temp Pulse Resp B/P (MAP) Pulse Ox O2 Delivery O2 Flow Rate FiO2 12/07/19 08:54 78 144/71 12/07/19 07:43 97.7 22 92 Nasal Cannula 2.0 12/07/19 00:00 I&O- Last 24 Hours up to 6 AM 12/07/19 05:59 Intake Total 1110 ml Output Total 1800 ml Balance -690 ml Laboratory Data 24H LABS Laboratory Tests 2 12/06/19 12:16: Bedside Glucose (Misc Panel) 278H 12/06/19 20:16: Bedside Glucose (Misc Panel) 336H 12/07/19 05:15: Immature Granulocyte % (Auto) 0.9, Neutrophils (%) (Auto) 66.8H, Lymphocytes (%) (Auto) 22.2L, Monocytes (%) (Auto) 9.5H, Eosinophils (%) (Auto) 0.5, Basophils (%) (Auto) 0.1, Neutrophils # (Auto) 9.3H, Lymphocytes # (Auto) 3.1, Monocytes # (Auto) 1.3H, Eosinophils # (Auto) 0.1, Basophils # (Auto) 0.0, Nucleated Red B lood Cells % (auto) 0.0, Anion Gap 5L, Glomerular Filtration Rate > 60.0, Calcium Level 8.3L, Total Bilirubin 0.3, Aspartate Amino Transf (AST/SGOT) 7, Alanine Aminotransferase (ALT/SGPT) 19, Alkaline Phosphatase 92, Total Protein 5.9#L, Albumin 2.8#L, Albumin/Globulin Ratio 0.90L CBC/BMP Laboratory Tests 12/07/19 05:15 Microbiology Microbiology 12/05/19 Blood Culture - Preliminary, Resulted No growth after 24 hours . All specim... 12/05/19 Respiratory Virus Panel (PCR) (GERI) - Final, Complete 12/05/19 Blood Culture - Preliminary, Resulted No growth after 24 hours . All specim... RUBEN PANDEY MD Dec 07, 2019 11:02
--- NOTE | 2019-12-07 11:42 | IPN ---
DATE: 12/07/2019 NOTE: Ms. Alexandra did well overnight. Her home bilevel machine was brought to the hospital but it was too late to be used last evening and she used the table top. She reports that she wore it all night. She is feeling better. She does not feel her breathing is yet at baseline. No significant cough. No wheezing. No chest pain or pressure. No nausea or emesis. No new concerns expressed. OBJECTIVE: PHYSICAL EXAMINATION: GENERAL: Ms. Alexandra was lying in bed initially asleep on her left side without the bilevel device in place. She was easily aroused. Vital signs: Temperature 97.7, pulse 78, blood pressure 144/71 with a MAP of 95, SPO2 92% on 2 liters nasal cannula. HEENT: Anicteric. Nares: Patent bilaterally. O2 tubing in place. Oropharynx with moist mucosa. LUNGS: Symmetric excursion, generalized diminished air entry. No wheeze, rhonchi or significant crackle on tidal excursion. Prolonged expiratory phase. No accessory muscle usage or retractions. CHEST: Increased AP diameter. CARDIOVASCULAR: Regular rate and rhythm with a normal S1, S2. No murmur, rub or gallop appreciated. ABDOMEN: Positive bowel sounds, soft, nondistended. No hepatosplenomegaly or masses appreciated. EXTREMITIES: Warm and well-perfused without clubbing, cyanosis or significant edema. Positive pedal pulses bilaterally. LABORATORY DATA: CBC from this morning showed a hemoglobin 9.6, hematocrit 33.2, platelet count 369, white blood cell count 14,000 with a differential of 67% neutrophils, 22% lymphocytes, 10% monocytes. Chemistry showed a sodium 137, potassium 3.2, chloride 93, bicarbonate 39, anion gap 5, BUN 21, creatinine 0.6, glucose 217, calcium 8.3, total bilirubin 0.3, AST 7, ALT 19, alkaline phosphatase 92, total protein 5.9, albumin 2.8. IMPRESSION: 1. Acute and chronic respiratory hypercapnic and hypoxemic respiratory failure. The acute portion appears to be secondary to an environmental cause at her home or tobacco usage. She has had multiple repeat admissions where she turns around quickly in the hospital but then decompensates just as quickly when she goes home. 2. Chronic obstructive pulmonary disease (COPD), end-stage. 3. Tobacco usage, ongoing at the time of admission. RECOMMENDATIONS: 1. Ms. Alexandra is now close to her baseline and I will take her corticosteroids down to her baseline level. Again, this is more of perturbation than a true exacerbation. 2. Continue bilevel support with naps and nocturnally. Diligence will have to be paid to making certain that she wears the device when she is sleeping. 3. We will start her on IC / LABA. One was not on her record reconciliation profile but I suspect that she was on this but possibly this was not restarted given her multiple admissions. 4. We will restart LAMA. At this point, there is nothing further that the pulmonary service can add as she is essentially at her baseline state and on her baseline medications. Agree with plan to keep her in the hospital until appropriate outpatient housing can be found. We will sign off for now. Please reconsult the pulmonary service if there are further difficulties. KIRIT
[2019-12-07] MEDS: TIOTROPIUM INHALER/CAPSULE (SPIRIVA) INH SCH (13:27)
[2019-12-07] MEDS: SYMBICORT 160/4.5MCG INHALER 6GM INH SCH ×2 (13:27→20:19)
[2019-12-07] MEDS: NORCO, ANEXSIA 5/325MG TABLET (HYDROcodone/ACETAMINOPHEN) PO PRN (17:34)
[2019-12-07] MEDS: ALPRAZolam 0.5 MG TAB PO SCH (20:50)
[2019-12-08] MEDS: IPRATROPIUM 0.02% SOLN 0.5MG/2.5 ML NEB NEB SCH ×4 (02:01→20:00)
[2019-12-08] MEDS: LEVALBUTEROL 1.25 MG/0.5 ML CONCENTRATE NEB NEB SCH ×4 (02:01→20:00)
[2019-12-08] MEDS: LEVOTHYROXINE 25MCG TABLET (0.025MG) PO SCH (05:10)
[2019-12-08 06:00] VITALS: BP 137/79
[2019-12-08 07:14] LABS: BASO % 0.2 % (0.0-1.0); EOS # 0.1 10^3/uL (0.0-0.5); EOS % 0.9 % (0.0-3.0); HEMATOCRIT 32.2 % (36.0-47.0); HEMOGLOBIN 9.3 g/dl (12.0-15.5); LYMPH # 2.6 10^3/uL (1.5-5.0); LYMPH % 23.5 % (24.0-44.0); MEAN CORPUSCULAR HGB CONC 28.9 g/dl (32.0-36.5); MEAN CORPUSCULAR VOLUME 83.2 fl (80.0-96.0); MONO % 9.4 % (0.0-5.0); NEUTROPHILS # 7.1 10^3/uL (1.5-8.5); PLATELET COUNT, AUTOMATED 351 10^3/uL (150-450); RED BLOOD COUNT 3.87 10^6/uL (4.00-5.40)
[2019-12-08 07:40] LABS: ALBUMIN 2.7 GM/DL (3.2-5.2); ALT/SGPT 20 U/L (12-78); BILIRUBIN,TOTAL 0.4 MG/DL (0.2-1.0); BLOOD UREA NITROGEN 13 MG/DL (7-18); CARBON DIOXIDE LEVEL 40 MEQ/L (21-32); CHLORIDE LEVEL 95 MEQ/L (98-107); CREATININE FOR GFR 0.55 MG/DL (0.55-1.30); GLOMERULAR FILTRATION RATE > 60.0 (>45); GLUCOSE, FASTING 156 MG/DL (70-100); POTASSIUM SERUM 3.2 MEQ/L (3.5-5.1); SODIUM LEVEL 139 MEQ/L (136-145); TOTAL PROTEIN 5.6 GM/DL (6.4-8.2)
[2019-12-08] MEDS: TIOTROPIUM INHALER/CAPSULE (SPIRIVA) INH SCH (07:43)
[2019-12-08] MEDS: SYMBICORT 160/4.5MCG INHALER 6GM INH SCH ×2 (07:43→20:00)
[2019-12-08] MEDS: PANTOPRAZOLE 40MG INJ (PROTONIX) (C9113) IV SCH (08:23)
[2019-12-08] MEDS: HumaLOG INSULIN (NovoLOG) PER UNIT SC SCH ×4 (08:24→21:12)
[2019-12-08] MEDS: ENOXAPARIN 40 MG/0.4 ML SYRINGE (J1650) SC SCH (08:24)
[2019-12-08] MEDS: ATORVASTATIN 20 MG TAB PO SCH (08:25)
[2019-12-08] MEDS: FUROSEMIDE 40 MG TAB PO SCH ×2 (08:26→17:44)
[2019-12-08] MEDS: SITagliptin 50 MG TAB (JANUVIA) PO SCH (08:27)
[2019-12-08] MEDS: ALPRAZolam 0.5 MG TAB PO SCH ×2 (08:27→21:12)
[2019-12-08] MEDS: POTASSIUM CHLORIDE 10 MEQ SR TABLET PO SCH (08:27)
[2019-12-08] MEDS: PROCHLORPERAZINE 5 MG TAB (S0183) PO SCH (08:28)
[2019-12-08] MEDS: FLUoxetine 20 MG CAP PO SCH (08:28)
[2019-12-08] MEDS: BISOPROLOL FUM 2.5 MG PER 1/2TAB PO SCH (08:28)
[2019-12-08] MEDS: GABAPENTIN 100 MG CAP PO SCH ×3 (08:29→21:12)
[2019-12-08] MEDS: predniSONE 10 MG TAB PO SCH (08:29)
[2019-12-08] MEDS: MELOXICAM (MOBIC) 7.5 MG TAB PO SCH ×2 (08:29→21:12)
[2019-12-08] MEDS: SERTRALINE 100 MG TAB PO SCH (08:30)
[2019-12-08] MEDS ORDERED: POTASSIUM CHLORIDE 10 MEQ SR TABLET PO ONE ×2 (10:00→18:30)
[2019-12-08 15:52] VITALS: BP 114/65
--- NOTE | 2019-12-08 17:30 | IPNPDOC ---
Date Seen The patient was seen on 12/08/19. Progress Note SUBJECTIVE: 59-year-old female with past medical history of diabetes mellitus, hypertension, hyperlipidemia, obstructive sleep apnea and chronic respiratory failure, was admitted for acute on chronic hypercapnic respiratory failure. Patient has had multiple admissions over the past couple of months for the same reason, likely due to noncompliance of home BiPAP. Patient improves clinically within 24 hours of hospitalization when treated with BiPAP on home settings. Patient is now on the floor, back to her baseline, resting comfortably, tolerating diet, without any complaints, used her BiPAP overnight without any issues. Patient denies any shortness of breath, chest pain, nausea, vomiting, abdominal pain or diarrhea. 10 point review of system is negative except for above PHYSICAL EXAMINATION: VITAL SIGNS: Please see below. GENERAL: No distress HEENT: Normocephalic, atraumatic, moist mucous membranes NECK: Supple CARDIOVASCULAR EXAMINATION: S1, S2, no murmurs RESPIRATORY EXAMINATION: Poor air movement, diminished breath sounds, no wheezing ABDOMINAL EXAMINATION: Soft, nontender, nondistended, positive bowel sounds EXTREMITIES: Range of motion intact SKIN: No rash NEUROLOGICAL EXAMINATION: Alert and oriented 3, no focal deficits PSYCHIATRIC EXAMINATION: Calm and cooperative LABORATORY DATA, IMAGING STUDIES, MICROBIOLOGY: Please see below. DVT prophylaxis ordered?: Yes ASSESSMENT AND PLAN: 59-year-old female with multiple medical comorbidities and multiple admissions for acute on chronic hypercapnic respiratory failure secondary to noncompliance with BiPAP has been readmitted for acute on chronic hypercapnic respiratory failure. PROBLEMS: 1. Acute on chronic hypercapnic respiratory failure: Resolved after treating patient with BiPAP using her home settings for 24 hours, patient back at baseline, continue BiPAP during naps and at bedtime. 2. Diabetes mellitus: Continue Januvia and sinus. It was before meals and at bedtime. 3. Hypertension: Continue bisoprolol. 4. COPD: Now stable, continue Symbicort, Spiriva, Xopenex and Atrovent as needed. Supplemental oxygen to maintain O2 sats 80-92%. 5. Hypothyroidism: Continue levothyroxine DVT prophylaxis: Lovenox. GI prophylaxis: Protonix VS, I&O, 24H, Fishbone Vital Signs/I&O Vital Signs Date Time Temp Pulse Resp B/P (MAP) Pulse Ox O2 Delivery O2 Flow Rate FiO2 12/08/19 09:00 2.0 12/08/19 08:28 69 137/79 12/08/19 06:00 97.8 18 96 Nasal Cannula 12/08/19 00:08 28 I&O- Last 24 Hours up to 6 AM 12/08/19 06:00 Intake Total 2460 ml Output Total 2200 ml Balance 260 ml Laboratory Data 24H LABS Laboratory Tests 2 12/07/19 19:41: Bedside Glucose (Misc Panel) 379H 12/08/19 06:35: Immature Granulocyte % (Auto) 1.0, Neutrophils (%) (Auto) 65.0, Lymphocytes (%) (Auto) 23.5L, Monocytes (%) (Auto) 9.4H, Eosinophils (%) (Auto) 0.9, Basophils (%) (Auto) 0.2, Neutrophils # (Auto) 7.1, Lymphocytes # (Auto) 2.6, Monocytes # (Auto) 1.0H, Eosinophils # (Auto) 0.1, Basophils # (Auto) 0.0, Nucleated Red Blood Cells % (auto) 0.0, Anion Gap 4L, Glomerular Filtration Rate > 60.0, Calcium Level 8.0L, Total Bilirubin 0.4, Aspartate Amino Transf (AST/SGOT) 5L, Alanine Aminotransferase (ALT/SGPT) 20, Alkaline Phosphatase 81, Total Protein 5.6L, Albumin 2.7L, Albumin/Globulin Ratio 0.93L 12/08/19 11:37: Bedside Glucose (Misc Panel) 190H CBC/BMP Laboratory Tests 12/08/19 06:35 Microbiology Microbiology 12/05/19 Blood Culture - Preliminary, Resulted No Growth after 48 hours. All Specime... 12/05/19 Respiratory Virus Panel (PCR) (GERI) - Final, Complete 12/05/19 Blood Culture - Preliminary, Resulted No Growth after 48 hours. All Specime... JANET MARTIN MD Dec 08, 2019 17:30
[2019-12-08 20:06] VITALS: BP 113/65
[2019-12-09] MEDS: LEVALBUTEROL 1.25 MG/0.5 ML CONCENTRATE NEB NEB SCH ×4 (02:39→20:00)
[2019-12-09] MEDS: IPRATROPIUM 0.02% SOLN 0.5MG/2.5 ML NEB NEB SCH ×4 (02:39→20:00)
[2019-12-09] MEDS: LEVOTHYROXINE 25MCG TABLET (0.025MG) PO SCH (05:52)
[2019-12-09 06:00] VITALS: BP 126/74
[2019-12-09 06:44] LABS: HEMOGLOBIN 9.4 g/dl (12.0-15.5); MEAN CORPUSCULAR HEMOGLOBIN 24.4 pg (27.0-33.0); MEAN CORPUSCULAR HGB CONC 28.5 g/dl (32.0-36.5); MEAN CORPUSCULAR VOLUME 85.5 fl (80.0-96.0); PLATELET COUNT, AUTOMATED 366 10^3/uL (150-450); RED BLOOD COUNT 3.86 10^6/uL (4.00-5.40); WHITE BLOOD COUNT 11.7 10^3/uL (4.0-10.0)
[2019-12-09 07:02] LABS: BLOOD UREA NITROGEN 12 MG/DL (7-18); CALCIUM LEVEL 7.6 MG/DL (8.8-10.2); CARBON DIOXIDE LEVEL 39 MEQ/L (21-32); CHLORIDE LEVEL 98 MEQ/L (98-107); CREATININE FOR GFR 0.53 MG/DL (0.55-1.30); GLOMERULAR FILTRATION RATE > 60.0 (>45); GLUCOSE, FASTING 156 MG/DL (70-100); POTASSIUM SERUM 3.8 MEQ/L (3.5-5.1); SODIUM LEVEL 140 MEQ/L (136-145)
[2019-12-09] MEDS: TIOTROPIUM INHALER/CAPSULE (SPIRIVA) INH SCH (07:16)
[2019-12-09] MEDS: SYMBICORT 160/4.5MCG INHALER 6GM INH SCH ×2 (07:18→20:03)
[2019-12-09] MEDS: PANTOPRAZOLE 40MG INJ (PROTONIX) (C9113) IV SCH (08:13)
[2019-12-09] MEDS: ENOXAPARIN 40 MG/0.4 ML SYRINGE (J1650) SC SCH ×2 (08:13→08:24)
[2019-12-09] MEDS: HumaLOG INSULIN (NovoLOG) PER UNIT SC SCH ×4 (08:13→20:17)
[2019-12-09] MEDS: SITagliptin 50 MG TAB (JANUVIA) PO SCH (08:14)
[2019-12-09] MEDS: ATORVASTATIN 20 MG TAB PO SCH (08:14)
[2019-12-09] MEDS: ALPRAZolam 0.5 MG TAB PO SCH ×2 (08:15→20:24)
[2019-12-09] MEDS ORDERED: POTASSIUM CHLORIDE 10 MEQ SR TABLET PO ONE (08:15)
[2019-12-09] MEDS: PROCHLORPERAZINE 5 MG TAB (S0183) PO SCH (08:15)
[2019-12-09] MEDS: BISOPROLOL FUM 2.5 MG PER 1/2TAB PO SCH (08:15)
[2019-12-09] MEDS: POTASSIUM CHLORIDE 10 MEQ SR TABLET PO SCH (08:16)
[2019-12-09] MEDS: SERTRALINE 100 MG TAB PO SCH ×2 (08:16→08:25)
[2019-12-09] MEDS: FLUoxetine 20 MG CAP PO SCH (08:17)
[2019-12-09] MEDS: GABAPENTIN 100 MG CAP PO SCH ×3 (08:17→20:24)
[2019-12-09] MEDS: FUROSEMIDE 40 MG TAB PO SCH ×2 (08:18→16:59)
[2019-12-09] MEDS: predniSONE 10 MG TAB PO SCH (08:18)
[2019-12-09] MEDS: MELOXICAM (MOBIC) 7.5 MG TAB PO SCH ×2 (08:18→20:24)
--- NOTE | 2019-12-09 12:11 | IPNPDOC ---
Date Seen The patient was seen on 12/09/19. Progress Note SUBJECTIVE: 59-year-old female with past medical history of diabetes mellitus, hypertension, hyperlipidemia, obstructive sleep apnea and chronic respiratory failure, was admitted for acute on chronic hypercapnic respiratory failure. Patient has had multiple admissions over the past couple of months for the same reason, likely due to noncompliance of home BiPAP. Patient improves clinically within 24 hours of hospitalization when treated with BiPAP on home settings. Patient is now on the floor, back to her baseline, resting comfortably, tolerating diet, without any complaints, used her BiPAP overnight without any issues. Patient denies any shortness of breath, chest pain, nausea, vomiting, abdominal pain or diarrhea. 12/09/19 Patient seen in the morning, resting comfortably in bed, tolerated BiPAP overnight, no new complaints, unchanged from yesterday, awaiting placement. 10 point review of system is negative except for above PHYSICAL EXAMINATION: VITAL SIGNS: Please see below. GENERAL: No distress HEENT: Normocephalic, atraumatic, moist mucous membranes NECK: Supple CARDIOVASCULAR EXAMINATION: S1, S2, no murmurs RESPIRATORY EXAMINATION: Poor air movement, diminished breath sounds, no wheezing ABDOMINAL EXAMINATION: Soft, nontender, nondistended, positive bowel sounds EXTREMITIES: Range of motion intact SKIN: No rash NEUROLOGICAL EXAMINATION: Alert and oriented 3, no focal deficits PSYCHIATRIC EXAMINATION: Calm and cooperative LABORATORY DATA, IMAGING STUDIES, MICROBIOLOGY: Please see below. DVT prophylaxis ordered?: Yes ASSESSMENT AND PLAN: 59-year-old female with multiple medical comorbidities and multiple admissions for acute on chronic hypercapnic respiratory failure secondary to noncompliance with BiPAP has been readmitted for acute on chronic hypercapnic respiratory failure. PROBLEMS: 1. Acute on chronic hypercapnic respiratory failure: Resolved after treating patient with BiPAP using her home settings for <24 hours, patient back at baseline, continue BiPAP during naps and at bedtime. 2. Diabetes mellitus: Continue Januvia and sliding scale insulin before meals and at bedtime. 3. Hypertension: Continue bisoprolol. 4. COPD: Now stable, continue Symbicort, Spiriva, Xopenex and Atrovent as needed. Supplemental oxygen to maintain O2 sats 80-92%. 5. Hypothyroidism: Continue levothyroxine DVT prophylaxis: Lovenox. GI prophylaxis: Protonix VS, I&O, 24H, Fishbone Vital Signs/I&O Vital Signs Date Time Temp Pulse Resp B/P (MAP) Pulse Ox O2 Delivery O2 Flow Rate FiO2 12/09/19 08:35 2.0 12/09/19 08:15 62 126/74 12/09/19 06:00 97.7 18 100 Nasal Cannula 12/08/19 00:08 28 I&O- Last 24 Hours up to 6 AM 12/09/19 06:00 Intake Total 1580 ml Output Total 0 ml Balance 1580 ml Laboratory Data 24H LABS Laboratory Tests 2 12/08/19 17:31: Bedside Glucose (Misc Panel) 265H 12/08/19 20:05: Bedside Glucose (Misc Panel) 287H 12/09/19 06:10: Nucleated Red Blood Cells % (auto) 0.0, Anion Gap 3L, Glomerular Filtration Rate > 60.0, Calcium Level 7.6L 12/09/19 11:45: Bedside Glucose (Misc Panel) 216H CBC/BMP Laboratory Tests 12/09/19 06:10 Microbiology Microbiology 12/05/19 Blood Culture - Preliminary, Resulted No Growth after 72 hours. All specime... 12/05/19 Respiratory Virus Panel (PCR) (GERI) - Final, Complete 12/05/19 Blood Culture - Preliminary, Resulted No Growth after 72 hours. All specime... JANET MARTIN MD Dec 09, 2019 12:11
[2019-12-09 14:00] VITALS: BP 132/73
[2019-12-10] MEDS: LEVALBUTEROL 1.25 MG/0.5 ML CONCENTRATE NEB NEB SCH ×4 (02:00→20:00)
[2019-12-10] MEDS: IPRATROPIUM 0.02% SOLN 0.5MG/2.5 ML NEB NEB SCH ×4 (02:00→20:00)
[2019-12-10] MEDS: LEVOTHYROXINE 25MCG TABLET (0.025MG) PO SCH (05:31)
[2019-12-10 06:14] LABS: HEMATOCRIT 32.4 % (36.0-47.0); HEMOGLOBIN 9.3 g/dl (12.0-15.5); MEAN CORPUSCULAR HEMOGLOBIN 24.3 pg (27.0-33.0); MEAN CORPUSCULAR HGB CONC 28.7 g/dl (32.0-36.5); MEAN CORPUSCULAR VOLUME 84.6 fl (80.0-96.0); PLATELET COUNT, AUTOMATED 340 10^3/uL (150-450); RED BLOOD COUNT 3.83 10^6/uL (4.00-5.40); WHITE BLOOD COUNT 11.6 10^3/uL (4.0-10.0)
[2019-12-10 06:32] LABS: BLOOD UREA NITROGEN 11 MG/DL (7-18); CALCIUM LEVEL 7.9 MG/DL (8.8-10.2); CARBON DIOXIDE LEVEL 40 MEQ/L (21-32); CHLORIDE LEVEL 99 MEQ/L (98-107); CREATININE FOR GFR 0.51 MG/DL (0.55-1.30); GLOMERULAR FILTRATION RATE > 60.0 (>45); GLUCOSE, FASTING 142 MG/DL (70-100); POTASSIUM SERUM 3.7 MEQ/L (3.5-5.1); SODIUM LEVEL 139 MEQ/L (136-145)
[2019-12-10] MEDS: HumaLOG INSULIN (NovoLOG) PER UNIT SC SCH ×4 (07:30→20:30)
[2019-12-10] MEDS: TIOTROPIUM INHALER/CAPSULE (SPIRIVA) INH SCH (08:16)
[2019-12-10] MEDS: SYMBICORT 160/4.5MCG INHALER 6GM INH SCH ×2 (08:17→20:01)
[2019-12-10] MEDS: ENOXAPARIN 40 MG/0.4 ML SYRINGE (J1650) SC SCH (08:30)
[2019-12-10] MEDS: BISOPROLOL FUM 2.5 MG PER 1/2TAB PO SCH (08:31)
[2019-12-10] MEDS: predniSONE 10 MG TAB PO SCH (08:31)
[2019-12-10] MEDS: FUROSEMIDE 40 MG TAB PO SCH ×2 (08:31→16:32)
[2019-12-10] MEDS: POTASSIUM CHLORIDE 10 MEQ SR TABLET PO SCH (08:31)
[2019-12-10] MEDS: FLUoxetine 20 MG CAP PO SCH (08:31)
[2019-12-10] MEDS: ATORVASTATIN 20 MG TAB PO SCH (08:31)
[2019-12-10] MEDS: ALPRAZolam 0.5 MG TAB PO SCH ×2 (08:31→20:50)
[2019-12-10] MEDS: MELOXICAM (MOBIC) 7.5 MG TAB PO SCH ×2 (08:31→20:50)
[2019-12-10] MEDS: PANTOPRAZOLE 40MG TAB (PROTONIX) PO SCH (08:31)
[2019-12-10] MEDS: PROCHLORPERAZINE 5 MG TAB (S0183) PO SCH (08:31)
[2019-12-10] MEDS: SITagliptin 50 MG TAB (JANUVIA) PO SCH (08:31)
[2019-12-10] MEDS: GABAPENTIN 100 MG CAP PO SCH ×3 (08:34→20:50)
[2019-12-10] MEDS ORDERED: VITAMIN D 50,000 UNITS CAPSULE (ERGOCALCIFEROL 1.25MG) PO SCH (09:00)
--- NOTE | 2019-12-10 10:33 | IPNPDOC ---
Date Seen The patient was seen on 12/10/19. Progress Note SUBJECTIVE: 59-year-old female with past medical history of diabetes mellitus, hypertension, hyperlipidemia, obstructive sleep apnea and chronic respiratory failure, was admitted for acute on chronic hypercapnic respiratory failure. Patient has had multiple admissions over the past couple of months for the same reason, likely due to noncompliance of home BiPAP. Patient improves clinically within 24 hours of hospitalization when treated with BiPAP on home settings. Patient is now on the floor, back to her baseline, resting comfortably, tolerating diet, without any complaints, used her BiPAP overnight without any issues. Patient denies any shortness of breath, chest pain, nausea, vomiting, abdominal pain or diarrhea. 12/09/19 Patient seen in the morning, resting comfortably in bed, tolerated BiPAP overnight, no new complaints, unchanged from yesterday, awaiting placement. 12/10/19 Patient seen in the morning, resting comfortably in chair, tolerated BiPAP overnight, at baseline health, no changes from yesterday, no complaint at this time. 10 point review of system is negative except for above PHYSICAL EXAMINATION: VITAL SIGNS: Please see below. GENERAL: No distress HEENT: Normocephalic, atraumatic, moist mucous membranes NECK: Supple CARDIOVASCULAR EXAMINATION: S1, S2, no murmurs RESPIRATORY EXAMINATION: Poor air movement, diminished breath sounds, no wheezing ABDOMINAL EXAMINATION: Soft, nontender, nondistended, positive bowel sounds EXTREMITIES: Range of motion intact SKIN: No rash NEUROLOGICAL EXAMINATION: Alert and oriented 3, no focal deficits PSYCHIATRIC EXAMINATION: Calm and cooperative LABORATORY DATA, IMAGING STUDIES, MICROBIOLOGY: Please see below. DVT prophylaxis ordered?: Yes ASSESSMENT AND PLAN: 59-year-old female with multiple medical comorbidities and multiple admissions for acute on chronic hypercapnic respiratory failure secondary to noncompliance with BiPAP has been readmitted for acute on chronic hypercapnic respiratory failure. PROBLEMS: 1. Acute on chronic hypercapnic respiratory failure: Resolved after treating patient with BiPAP using her home settings for <24 hours, patient back at baseline, continue BiPAP during naps and at bedtime. Patient is awaiting placement to assisted living, social organization professor arranging. 2. Diabetes mellitus: Continue Januvia and sliding scale insulin before meals and at bedtime. 3. Hypertension: Continue bisoprolol. 4. COPD: Now stable, continue Symbicort, Spiriva, Xopenex and Atrovent as needed. Supplemental oxygen to maintain O2 sats 80-92%. 5. Hypothyroidism: Continue levothyroxine DVT prophylaxis: Lovenox. GI prophylaxis: Protonix VS, I&O, 24H, Fishbone Vital Signs/I&O Vital Signs Date Time Temp Pulse Resp B/P (MAP) Pulse Ox O2 Delivery O2 Flow Rate FiO2 12/10/19 08:31 85 126/74 12/10/19 08:00 2.0 12/09/19 14:00 98.3 18 95 Nasal Cannula 12/08/19 00:08 28 I&O- Last 24 Hours up to 6 AM 12/10/19 06:00 Intake Total 3280 ml Output Total 0 ml Balance 3280 ml Laboratory Data 24H LABS Laboratory Tests 2 12/09/19 11:45: Bedside Glucose (Misc Panel) 216H 12/09/19 16:38: Bedside Glucose (Misc Panel) 329H 12/09/19 20:08: Bedside Glucose (Misc Panel) 167H 12/10/19 05:52: Nucleated Red Blood Cells % (auto) 0.0, Anion Gap 0L, Glomerular Filtration Rate > 60.0, Calcium Level 7.9L CBC/BMP Laboratory Tests 12/10/19 05:52 Microbiology Microbiology 12/05/19 Blood Culture - Preliminary, Resulted No Growth after 72 hours. All specime... 12/05/19 Respiratory Virus Panel (PCR) (GERI) - Final, Complete 12/05/19 Blood Culture - Preliminary, Resulted No Growth after 72 hours. All specime... JANET MARTIN MD Dec 10, 2019 10:33
[2019-12-10 14:00] VITALS: BP 118/60
[2019-12-10 22:00] VITALS: BP 111/62
[2019-12-11] MEDS: LEVALBUTEROL 1.25 MG/0.5 ML CONCENTRATE NEB NEB SCH ×4 (00:27→17:50)
[2019-12-11] MEDS: IPRATROPIUM 0.02% SOLN 0.5MG/2.5 ML NEB NEB SCH ×4 (00:27→17:50)
[2019-12-11] MEDS: LEVOTHYROXINE 25MCG TABLET (0.025MG) PO SCH (05:52)
[2019-12-11 06:00] VITALS: BP 125/68
[2019-12-11] MEDS: predniSONE 10 MG TAB PO SCH (08:05)
[2019-12-11] MEDS: ENOXAPARIN 40 MG/0.4 ML SYRINGE (J1650) SC SCH (08:05)
[2019-12-11] MEDS: SITagliptin 50 MG TAB (JANUVIA) PO SCH (08:06)
[2019-12-11] MEDS: POTASSIUM CHLORIDE 10 MEQ SR TABLET PO SCH (08:06)
[2019-12-11] MEDS: FLUoxetine 20 MG CAP PO SCH (08:06)
[2019-12-11] MEDS: ATORVASTATIN 20 MG TAB PO SCH (08:06)
[2019-12-11] MEDS: ALPRAZolam 0.5 MG TAB PO SCH ×2 (08:06→20:24)
[2019-12-11] MEDS: PANTOPRAZOLE 40MG TAB (PROTONIX) PO SCH (08:06)
[2019-12-11] MEDS: GABAPENTIN 100 MG CAP PO SCH ×3 (08:07→20:24)
[2019-12-11] MEDS: FUROSEMIDE 40 MG TAB PO SCH ×2 (08:07→16:33)
[2019-12-11] MEDS: PROCHLORPERAZINE 5 MG TAB (S0183) PO SCH (08:07)
[2019-12-11] MEDS: MELOXICAM (MOBIC) 7.5 MG TAB PO SCH ×2 (08:07→20:24)
[2019-12-11] MEDS: SYMBICORT 160/4.5MCG INHALER 6GM INH SCH ×2 (08:11→17:50)
[2019-12-11] MEDS: TIOTROPIUM INHALER/CAPSULE (SPIRIVA) INH SCH (08:11)
[2019-12-11] MEDS: HumaLOG INSULIN (NovoLOG) PER UNIT SC SCH ×4 (08:21→20:24)
[2019-12-11] MEDS: BISOPROLOL FUM 2.5 MG PER 1/2TAB PO SCH (08:23)
[2019-12-11 22:00] VITALS: BP 118/56
--- NOTE | 2019-12-11 23:17 | IPNPDOC ---
Date Seen The patient was seen on 12/11/19. Progress Note SUBJECTIVE: 59-year-old female with past medical history of diabetes mellitus, hypertension, hyperlipidemia, obstructive sleep apnea and chronic respiratory failure, was admitted for acute on chronic hypercapnic respiratory failure. Patient has had multiple admissions over the past couple of months for the same reason, likely due to noncompliance of home BiPAP. Patient improves clinically within 24 hours of hospitalization when treated with BiPAP on home settings. Patient is now on the floor, back to her baseline, resting comfortably, tolerating diet, without any complaints, used her BiPAP overnight without any issues. Patient denies any shortness of breath, chest pain, nausea, vomiting, abdominal pain or diarrhea. 12/09/19 Patient seen in the morning, resting comfortably in bed, tolerated BiPAP overnight, no new complaints, unchanged from yesterday, awaiting placement. 12/10/19 Patient seen in the morning, resting comfortably in chair, tolerated BiPAP overnight, at baseline health, no changes from yesterday, no complaint at this time. 12/11/19 No acute events overnight, resting comfortably in bed, at baseline level of health, without any complaints at this time, awaiting placement. 10 point review of system is negative except for above PHYSICAL EXAMINATION: VITAL SIGNS: Please see below. GENERAL: No distress HEENT: Normocephalic, atraumatic, moist mucous membranes NECK: Supple CARDIOVASCULAR EXAMINATION: S1, S2, no murmurs RESPIRATORY EXAMINATION: Poor air movement, diminished breath sounds, no wheezing ABDOMINAL EXAMINATION: Soft, nontender, nondistended, positive bowel sounds EXTREMITIES: Range of motion intact SKIN: No rash NEUROLOGICAL EXAMINATION: Alert and oriented 3, no focal deficits PSYCHIATRIC EXAMINATION: Calm and cooperative LABORATORY DATA, IMAGING STUDIES, MICROBIOLOGY: Please see below. DVT prophylaxis ordered?: Yes ASSESSMENT AND PLAN: 59-year-old female with multiple medical comorbidities and multiple admissions for acute on chronic hypercapnic respiratory failure secondary to noncompliance with BiPAP has been readmitted for acute on chronic hypercapnic respiratory failure. PROBLEMS: 1. Acute on chronic hypercapnic respiratory failure: Resolved after treating patient with BiPAP using her home settings for <24 hours, patient back at baseline, continue BiPAP during naps and at bedtime. Patient is awaiting placement to assisted living, psychologist social arranging. 2. Diabetes mellitus: Continue Januvia and sliding scale insulin before meals and at bedtime. 3. Hypertension: Continue bisoprolol. 4. COPD: Now stable, continue Symbicort, Spiriva, Xopenex and Atrovent as needed. Supplemental oxygen to maintain O2 sats 80-92%. 5. Hypothyroidism: Continue levothyroxine DVT prophylaxis: Lovenox. GI prophylaxis: Protonix VS, I&O, 24H, Fishbone Vital Signs/I&O Vital Signs Date Time Temp Pulse Resp B/P (MAP) Pulse Ox O2 Delivery O2 Flow Rate FiO2 12/11/19 22:00 97.6 75 20 118/56 (76) 93 Nasal Cannula 1.5 12/08/19 00:08 28 I&O- Last 24 Hours up to 6 AM 12/11/19 05:59 Intake Total 2390 ml Output Total 0 ml Balance 2390 ml Laboratory Data 24H LABS Laboratory Tests 2 12/11/19 06:19: Bedside Glucose (Misc Panel) 139H 12/11/19 11:25: Bedside Glucose (Misc Panel) 254H 12/11/19 16:32: Bedside Glucose (Misc Panel) 201H 12/11/19 20:22: Bedside Glucose (Misc Panel) 201H Microbiology Microbiology 12/05/19 Blood Culture - Final, Complete NO GROWTH AFTER 5 DAYS 12/05/19 Respiratory Virus Panel (PCR) (GERI) - Final, Complete 12/05/19 Blood Culture - Final, Complete NO GROWTH AFTER 5 DAYS JANET MARTIN MD Dec 11, 2019 23:17
[2019-12-12] MEDS: IPRATROPIUM 0.02% SOLN 0.5MG/2.5 ML NEB NEB SCH ×4 (03:06→18:43)
[2019-12-12] MEDS: LEVALBUTEROL 1.25 MG/0.5 ML CONCENTRATE NEB NEB SCH ×4 (03:06→18:43)
[2019-12-12] MEDS: LEVOTHYROXINE 25MCG TABLET (0.025MG) PO SCH (04:58)
[2019-12-12 06:00] VITALS: BP 139/78
[2019-12-12] MEDS: MELOXICAM (MOBIC) 7.5 MG TAB PO SCH ×2 (08:10→20:04)
[2019-12-12] MEDS: predniSONE 10 MG TAB PO SCH (08:10)
[2019-12-12] MEDS: FUROSEMIDE 40 MG TAB PO SCH ×2 (08:10→16:08)
[2019-12-12] MEDS: ALPRAZolam 0.5 MG TAB PO SCH ×2 (08:10→20:04)
[2019-12-12] MEDS: SITagliptin 50 MG TAB (JANUVIA) PO SCH (08:10)
[2019-12-12] MEDS: GABAPENTIN 100 MG CAP PO SCH ×3 (08:10→20:04)
[2019-12-12] MEDS: BISOPROLOL FUM 2.5 MG PER 1/2TAB PO SCH (08:11)
[2019-12-12] MEDS: FLUoxetine 20 MG CAP PO SCH (08:11)
[2019-12-12] MEDS: PROCHLORPERAZINE 5 MG TAB (S0183) PO SCH (08:11)
[2019-12-12] MEDS: ATORVASTATIN 20 MG TAB PO SCH (08:11)
[2019-12-12] MEDS: PANTOPRAZOLE 40MG TAB (PROTONIX) PO SCH (08:11)
[2019-12-12] MEDS: POTASSIUM CHLORIDE 10 MEQ SR TABLET PO SCH (08:12)
[2019-12-12] MEDS: HumaLOG INSULIN (NovoLOG) PER UNIT SC SCH ×4 (08:12→20:04)
[2019-12-12] MEDS: ENOXAPARIN 40 MG/0.4 ML SYRINGE (J1650) SC SCH (08:13)
[2019-12-12] MEDS: TIOTROPIUM INHALER/CAPSULE (SPIRIVA) INH SCH (08:18)
[2019-12-12] MEDS: SYMBICORT 160/4.5MCG INHALER 6GM INH SCH ×2 (08:18→18:42)
[2019-12-12 14:00] VITALS: BP 128/62
[2019-12-12] MEDS: NORCO, ANEXSIA 5/325MG TABLET (HYDROcodone/ACETAMINOPHEN) PO PRN (16:08)
[2019-12-13 02:14] VITALS: O2SAT 94
[2019-12-13] MEDS: IPRATROPIUM 0.02% SOLN 0.5MG/2.5 ML NEB NEB SCH ×4 (02:14→19:37)
[2019-12-13] MEDS: LEVALBUTEROL 1.25 MG/0.5 ML CONCENTRATE NEB NEB SCH ×4 (02:14→19:37)
[2019-12-13] MEDS: LEVOTHYROXINE 25MCG TABLET (0.025MG) PO SCH (05:45)
[2019-12-13 06:00] VITALS: BP 128/66
[2019-12-13 06:26] LABS: HEMATOCRIT 34.2 % (36.0-47.0); HEMOGLOBIN 9.7 g/dl (12.0-15.5); MEAN CORPUSCULAR HEMOGLOBIN 24.4 pg (27.0-33.0); MEAN CORPUSCULAR HGB CONC 28.4 g/dl (32.0-36.5); MEAN CORPUSCULAR VOLUME 86.1 fl (80.0-96.0); PLATELET COUNT, AUTOMATED 313 10^3/uL (150-450); RED BLOOD COUNT 3.97 10^6/uL (4.00-5.40); WHITE BLOOD COUNT 11.8 10^3/uL (4.0-10.0)
[2019-12-13 06:57] LABS: BLOOD UREA NITROGEN 11 MG/DL (7-18); CALCIUM LEVEL 8.1 MG/DL (8.8-10.2); CARBON DIOXIDE LEVEL 36 MEQ/L (21-32); CHLORIDE LEVEL 99 MEQ/L (98-107); CREATININE FOR GFR 0.54 MG/DL (0.55-1.30); GLOMERULAR FILTRATION RATE > 60.0 (>45); GLUCOSE, FASTING 158 MG/DL (70-100); MAGNESIUM LEVEL 1.8 MG/DL (1.8-2.4); PHOSPHORUS LEVEL 3.5 MG/DL (2.5-4.9); POTASSIUM SERUM 3.5 MEQ/L (3.5-5.1); SODIUM LEVEL 138 MEQ/L (136-145)
[2019-12-13] MEDS: HumaLOG INSULIN (NovoLOG) PER UNIT SC SCH ×4 (08:12→21:00)
[2019-12-13] MEDS: ALPRAZolam 0.5 MG TAB PO SCH ×2 (08:12→21:23)
[2019-12-13] MEDS: GABAPENTIN 100 MG CAP PO SCH ×3 (08:12→21:24)
[2019-12-13] MEDS: ATORVASTATIN 20 MG TAB PO SCH (08:12)
[2019-12-13] MEDS: ENOXAPARIN 40 MG/0.4 ML SYRINGE (J1650) SC SCH (08:12)
[2019-12-13] MEDS: PANTOPRAZOLE 40MG TAB (PROTONIX) PO SCH (08:13)
[2019-12-13] MEDS: MELOXICAM (MOBIC) 7.5 MG TAB PO SCH ×2 (08:13→21:24)
[2019-12-13] MEDS: PROCHLORPERAZINE 5 MG TAB (S0183) PO SCH (08:13)
[2019-12-13] MEDS: BISOPROLOL FUM 2.5 MG PER 1/2TAB PO SCH (08:13)
[2019-12-13] MEDS: FLUoxetine 20 MG CAP PO SCH (08:13)
[2019-12-13] MEDS: POTASSIUM CHLORIDE 10 MEQ SR TABLET PO SCH (08:13)
[2019-12-13] MEDS: SITagliptin 50 MG TAB (JANUVIA) PO SCH (08:13)
[2019-12-13] MEDS: predniSONE 10 MG TAB PO SCH (08:13)
[2019-12-13] MEDS: FUROSEMIDE 40 MG TAB PO SCH ×2 (08:13→16:06)
[2019-12-13] MEDS: TIOTROPIUM INHALER/CAPSULE (SPIRIVA) INH SCH (08:17)
[2019-12-13] MEDS: SYMBICORT 160/4.5MCG INHALER 6GM INH SCH ×2 (08:17→19:38)
[2019-12-13] MEDS ORDERED: POTASSIUM CHLORIDE 10 MEQ SR TABLET PO ONE (10:00)
[2019-12-13] MEDS ORDERED: MAG SULF 1GM/100ML (MAG RUN) 1 GM in IV 1 EA IV ONE (10:00)
[2019-12-13 19:37] VITALS: O2SAT 94
[2019-12-14] MEDS: LEVALBUTEROL 1.25 MG/0.5 ML CONCENTRATE NEB NEB SCH ×4 (02:53→20:00)
[2019-12-14] MEDS: IPRATROPIUM 0.02% SOLN 0.5MG/2.5 ML NEB NEB SCH ×4 (02:53→20:00)
[2019-12-14] MEDS: LEVOTHYROXINE 25MCG TABLET (0.025MG) PO SCH (05:49)
[2019-12-14 06:00] VITALS: BP_SYST 116; BP_SYST 117; BP_DIAS 68
[2019-12-14] MEDS: SYMBICORT 160/4.5MCG INHALER 6GM INH SCH ×2 (07:40→20:19)
[2019-12-14] MEDS: TIOTROPIUM INHALER/CAPSULE (SPIRIVA) INH SCH (08:00)
[2019-12-14] MEDS: PROCHLORPERAZINE 5 MG TAB (S0183) PO SCH (08:32)
[2019-12-14] MEDS: HumaLOG INSULIN (NovoLOG) PER UNIT SC SCH ×4 (08:32→20:51)
[2019-12-14] MEDS: ALPRAZolam 0.5 MG TAB PO SCH ×2 (08:32→20:49)
[2019-12-14] MEDS: POTASSIUM CHLORIDE 10 MEQ SR TABLET PO SCH (08:32)
[2019-12-14] MEDS: predniSONE 10 MG TAB PO SCH (08:33)
[2019-12-14] MEDS: ENOXAPARIN 40 MG/0.4 ML SYRINGE (J1650) SC SCH (08:33)
[2019-12-14] MEDS: BISOPROLOL FUM 2.5 MG PER 1/2TAB PO SCH (08:33)
[2019-12-14] MEDS: MELOXICAM (MOBIC) 7.5 MG TAB PO SCH ×2 (08:33→20:49)
[2019-12-14] MEDS: FLUoxetine 20 MG CAP PO SCH (08:33)
[2019-12-14] MEDS: PANTOPRAZOLE 40MG TAB (PROTONIX) PO SCH (08:33)
[2019-12-14] MEDS: FUROSEMIDE 40 MG TAB PO SCH ×2 (08:33→18:11)
[2019-12-14] MEDS: SITagliptin 50 MG TAB (JANUVIA) PO SCH (08:34)
[2019-12-14] MEDS: GABAPENTIN 100 MG CAP PO SCH ×3 (08:34→20:49)
[2019-12-14] MEDS: ATORVASTATIN 20 MG TAB PO SCH (08:34)
[2019-12-14] MEDS: NORCO, ANEXSIA 5/325MG TABLET (HYDROcodone/ACETAMINOPHEN) PO PRN (10:09)
[2019-12-15] MEDS: IPRATROPIUM 0.02% SOLN 0.5MG/2.5 ML NEB NEB SCH ×3 (00:44→13:40)
[2019-12-15] MEDS: LEVALBUTEROL 1.25 MG/0.5 ML CONCENTRATE NEB NEB SCH ×3 (00:44→13:40)
[2019-12-15] MEDS: LEVOTHYROXINE 25MCG TABLET (0.025MG) PO SCH (05:21)
[2019-12-15 06:02] VITALS: BP 122/67
[2019-12-15] MEDS: NORCO, ANEXSIA 5/325MG TABLET (HYDROcodone/ACETAMINOPHEN) PO PRN (06:19)
[2019-12-15] MEDS: TIOTROPIUM INHALER/CAPSULE (SPIRIVA) INH SCH (08:35)
[2019-12-15] MEDS: SYMBICORT 160/4.5MCG INHALER 6GM INH SCH (08:35)
[2019-12-15] MEDS: SITagliptin 50 MG TAB (JANUVIA) PO SCH (08:52)
[2019-12-15] MEDS: PROCHLORPERAZINE 5 MG TAB (S0183) PO SCH (08:52)
[2019-12-15] MEDS: ATORVASTATIN 20 MG TAB PO SCH (08:52)
[2019-12-15 08:53] VITALS: BP 122/67
[2019-12-15] MEDS: FUROSEMIDE 40 MG TAB PO SCH (08:53)
[2019-12-15] MEDS: predniSONE 10 MG TAB PO SCH (08:53)
[2019-12-15] MEDS: BISOPROLOL FUM 2.5 MG PER 1/2TAB PO SCH (08:53)
[2019-12-15] MEDS: ALPRAZolam 0.5 MG TAB PO SCH (08:53)
[2019-12-15] MEDS: POTASSIUM CHLORIDE 10 MEQ SR TABLET PO SCH (08:53)
[2019-12-15] MEDS: MELOXICAM (MOBIC) 7.5 MG TAB PO SCH (08:53)
[2019-12-15] MEDS: ENOXAPARIN 40 MG/0.4 ML SYRINGE (J1650) SC SCH (08:54)
[2019-12-15] MEDS: FLUoxetine 20 MG CAP PO SCH (08:54)
[2019-12-15] MEDS: GABAPENTIN 100 MG CAP PO SCH (08:54)
[2019-12-15] MEDS: PANTOPRAZOLE 40MG TAB (PROTONIX) PO SCH (08:54)
[2019-12-15] MEDS: HumaLOG INSULIN (NovoLOG) PER UNIT SC SCH ×2 (08:54→12:03)
[2019-12-15] MEDS ORDERED: PRED10TA2 PO (13:14)
--- NOTE | 2019-12-15 18:05 | DS.PDOC ---
Discharge Summary General Date of Admission Dec 05, 2019 at 21:13 Date of Discharge 12/15/19 Attending Physician: JANET MARTIN MD Discharge Summary PROCEDURES PERFORMED DURING STAY: None. ADMITTING DIAGNOSES: 1. Acute on chronic hypercapnic respiratory failure. DISCHARGE DIAGNOSES: 1. Acute on chronic hypercapnic respiratory failure. COMPLICATIONS/CHIEF COMPLAINT: Acute Respiratory Failure With Hypoxia And Hyperca. HISTORY OF PRESENT ILLNESS: 59-year-old female with multiple medical comorbidities was admitted for acute on chronic hypercapnic respiratory failure. Patient has had multiple hospitalizations recently for the same reason, likely due to noncompliance with BiPAP at home. Patient improved with BiPAP using her home settings within 24 hours. Patient has remained stable throughout the hospitalization while complying with her home BiPAP, no other events during hospitalization. Patient is strongly urged to be compliant with her BiPAP, recommend close follow with production operator and PCP after discharge. Patient re ports understanding and expresses willingness to comply with discharge planning. HOSPITAL COURSE: As above. DISCHARGE MEDICATIONS: Please see below. ALLERGIES: Please see below. PHYSICAL EXAMINATION: VITAL SIGNS: Please see below. GENERAL: No distress HEENT: Normocephalic, atraumatic, moist mucous membranes NECK: Supple CARDIOVASCULAR EXAMINATION: S1, S2, no murmurs RESPIRATORY EXAMINATION: Poor air movement, diminished breath sounds, no wheezing ABDOMINAL EXAMINATION: Soft, nontender, nondistended, positive bowel sounds EXTREMITIES: Range of motion intact SKIN: No rash NEUROLOGICAL EXAMINATION: Alert and oriented 3, no focal deficits PSYCHIATRIC EXAMINATION: Calm and cooperative LABORATORY DATA: Please see below. PROGNOSIS: Guarded ACTIVITY: As tolerated. DIET: Cardiac DISCHARGE PLAN: Follow with pulmonary and PCP DISPOSITION: [facility]. DISCHARGE INSTRUCTIONS: 1. As above. DISCHARGE CONDITION: Stable. TIME SPENT ON DISCHARGE: Greater than 35 minutes. Vital Signs/I&Os Vital Signs Date Time Temp Pulse Resp B/P (MAP) Pulse Ox O2 Delivery O2 Flow Rate FiO2 12/15/19 08:53 75 122/67 12/15/19 07:45 1.0 12/15/19 06:19 16 12/15/19 06:02 95 Nasal Cannula 12/14/19 06:00 97.9 12/13/19 02:14 28 I&O- Last 24 Hours up to 6 AM 12/15/19 05:59 Intake Total 720 ml Balance 720 ml Laboratory Data Labs 24H Laboratory Tests 2 12/14/19 20:50: Bedside Glucose (Misc Panel) 213H 12/15/19 06:15: Bedside Glucose (Misc Panel) 147H 12/15/19 11:48: Bedside Glucose (Misc Panel) 192H FSBS Laboratory Tests Test 12/14/19 20:50 12/15/19 06:15 12/15/19 11:48 Range/Units Bedside Glucose (Misc Panel) 213 147 192 80-115 MG/DL Microbiology Microbiology 12/05/19 Blood Culture - Final, Complete NO GROWTH AFTER 5 DAYS 12/05/19 Respiratory Virus Panel (PCR) (GERI) - Final, Complete 12/05/19 Blood Culture - Final, Complete NO GROWTH AFTER 5 DAYS Discharge Medications Scheduled Alprazolam (Alprazolam) 0.5 Mg Tablet, 0.5 MG PO BID, (Reported) Atorvastatin Calcium (Atorvastatin Calcium) 80 Mg Tablet, 80 MG PO DAILY, (Reported) Bisoprolol Fumarate (Bisoprolol Fumarate) 5 Mg Tablet, 2.5 MG PO DAILY, (Reported) Ergocalciferol (Vitamin D2) (Vitamin D2) 50,000 Units Cap, 50,000 UNITS PO 1XWK, (Reported) TAKES ON FRIDAY Fluoxetine HCl (Fluoxetine HCl) 20 Mg Tablet, 20 MG PO DAILY, (Reported) Furosemide (Furosemide) 40 Mg Tablet, 40 MG PO BID, (Reported) Gabapentin (Gabapentin) 800 Mg Tablet, 800 MG PO TID, (Reported) Levothyroxine Sodium (Levothyroxine Sodium) 25 Mcg Tablet, 25 MCG PO DAILY, (Reported) Meloxicam (Mobic) 7.5 Mg Tablet, 7.5 MG PO BID, (Reported) WITH FOOD Pantoprazole Sodium (Pantoprazole Sodium) 40 Mg Tablet.dr, 40 MG PO DAILY, (Reported) Potassium Chloride (Potassium Chloride) 8 Meq Capsule.er, 16 MEQ PO DAILY, (Reported) Prednisone (Prednisone) 10 Mg Tablet, 10 MG PO DAILY Prochlorperazine (Prochlorperazine Maleate) 5 Mg Tablet, 5 MG PO DAILY, (Reported) Sertraline HCl (Sertraline HCl) 100 Mg Tablet, 100 MG PO DAILY, (Reported) Sitagliptin Phosphate (Januvia) 100 Mg Tablet, 100 MG PO DAILY, (Reported) Tiotropium Dayhoit (Spiriva) 18 Mcg Cap.w.dev, 1 INHALATION INH DAILY, (Reported) Scheduled PRN Albuterol Sulfate (Ventolin Hfa) 18 Gm Hfa.aer.ad, 2 PUFF INH Q4-6H PRN for wheezing, (Reported) Hydrocodone/Acetaminophen (Hydrocodone-Acetamin 5-325 mg) 1 Each Tablet, 1 TAB PO TID PRN for pain, (Reported) Ipratropium/Albuterol Sulfate (Iprat-Albut 0.5-3(2.5) mg/3 ml) 3 Ml Ampul.neb, 1 INHALATION IN QID PRN for SHORTNESS OF BREATH, (Reported) Levalbuterol Hydrochloride (Xopenex Concentrate) 1.25 Mg/0.5 Ml Vial.neb, 1.25 MG INH Q4H PRN for WHEEZING, (Reported) Allergies Coded Allergies: Cat Dander (Verified Allergy, Unknown, 12/05/19) Dust (Verified Allergy, Unknown, 12/05/19) JANET MARTIN MD Dec 15, 2019 18:04
== END 2019-12-15 13:50 | DRG 189 ==
LOC: EDBD 18:13 → M ED 18:13 → M ED INP 21:13 → ENRESERV 22:02 → M ICU 23:03 → M PCU 12-06 16:17 → M MS5PR 12-07 23:32
PROVIDERS: ADMIT Internal Medicine; ATTEND Internal Medicine
PROC: 5A0935Z Assistance with Respiratory Ventilation, Less than 24 Consecutive Hours (ICD-10-PCS; principal; 2019-12-05)
DX: J96.21 Acute and chronic respiratory failure with hypoxia (principal); J44.1 Chronic obstructive pulmonary disease with (acute) exacerbation; J96.22 Acute and chronic respiratory failure with hypercapnia; Z99.81 Dependence on supplemental oxygen; Z79.51 Long term (current) use of inhaled steroids; G47.33 Obstructive sleep apnea (adult) (pediatric); E11.40 Type 2 diabetes mellitus with diabetic neuropathy, unspecified; I25.10 Atherosclerotic heart disease of native coronary artery without angina pectoris; I25.2 Old myocardial infarction; I10 Essential (primary) hypertension; E78.5 Hyperlipidemia, unspecified; E03.9 Hypothyroidism, unspecified; F31.9 Bipolar disorder, unspecified; K21.9 Gastro-esophageal reflux disease without esophagitis; F17.200 Nicotine dependence, unspecified, uncomplicated; Z79.899 Other long term (current) drug therapy; Z91.09 Other allergy status, other than to drugs and biological substances; D72.829 Elevated white blood cell count, unspecified; F41.9 Anxiety disorder, unspecified; Z91.19 Patient's noncompliance with other medical treatment and regimen; Z91.14 Patient's other noncompliance with medication regimen; Z79.4 Long term (current) use of insulin

== ENCOUNTER → 2019-12-20 | Outpatient (REF) | payer MEDICARE, MEDICAID ==
[~2019-12-20] MED LIST: ALPR0.5T3 PO; ATOR80TA59 PO; BISO5TAB14 PO; FLUO1TAB3 PO; FURO40TA2 PO; GABA800T4 PO; HYDR-3713 PO; IPRA0.00 IN; JANU100T PO; LEVA12INH INH; LEVO25TA5 PO; MOBI4TAB PO; PANT-23 PO; POTA8CAP10 PO; PRED10TA2 PO; PROC5TA PO; SERT-138 PO; SPIR1CAP INH; VENTAER INH; VITA50005 PO
[2019-12-20 08:20] LABS: BLOOD UREA NITROGEN 8 MG/DL (7-18); CALCIUM LEVEL 9.2 MG/DL (8.8-10.2); CARBON DIOXIDE LEVEL 38 MEQ/L (21-32); CHLORIDE LEVEL 95 MEQ/L (98-107); CREATININE FOR GFR 0.46 MG/DL (0.55-1.30); GLOMERULAR FILTRATION RATE > 60.0 (>45); GLUCOSE, FASTING 148 MG/DL (70-100); POTASSIUM SERUM 3.6 MEQ/L (3.5-5.1); SODIUM LEVEL 139 MEQ/L (136-145)
[2019-12-20 10:48] LABS: HEMOGLOBIN A1c 8.2 %
[2019-12-20 12:08] LABS: TOTAL 25(OH) VITAMIN D 72.8 NG/ML (30.0-100.0)
== END ==
LOC: SKLAB4 13:48
PROVIDERS: ATTEND Internal Medicine
DX: J44.9 Chronic obstructive pulmonary disease, unspecified (principal); E11.9 Type 2 diabetes mellitus without complications; Z79.899 Other long term (current) drug therapy